=== PATIENT | male | born 1975 | race Caucasian/White ===

== ENCOUNTER 2016-05-19 08:50 | Emergency (ER) | payer OTHER ==
--- NOTE | 2016-05-19 10:02 | ED ---
General Adult HPI - General Chief complaint: Eye Problems Stated complaint: RED AND IRRITATED EYES Time Seen by Provider: 05/19/16 09:19 Source: patient, RN notes reviewed Mode of arrival: ambulatory Limitations: no limitations - History of Present Illness Initial comments: Patient 40-year-old male who presents emergency room today with chief complaint of bilateral eye irritation and drainage over the last week. Does admit that he had cough congestion previous to the last week. States that he went to urgent care was treated for a pinkeye infection started on antibiotic drops of polymyxin. Patient is no improvement still having drainage discharge. States is having droopiness and crusting over the eyelids in the morning that he has to clean off. States the burning sensation to his eyes. Denies any other complaints or associated symptoms at this time. Patient denies any recent fever , chills, shortness of breath, chest pain, back pain, abdominal pain, nausea or vomiting, numbness or tingling, dysuria or hematuria, constipation or diarrhea, headaches or visual changes, or any other complaints. - Related Data Previous Rx's Medication Instructions Recorded Ofloxacin 0.3% Ophth Soln [Ocuflox 1 - 2 drops BOTH EYES QID 7 Days 05/19/16 Ophth Soln] Allergies Allergy/AdvReac Type Severity Reaction Status Date / Time azithromycin Allergy Unknown Verified 05/19/16 08:54 Penicillins Allergy Unknown Verified 05/19/16 08:54 Review of Systems ROS Statement: Those systems with pertinent positive or pertinent negative responses have been documented in the HPI. ROS Other: All systems not noted in ROS Statement are negative. Past Medical History Past Medical History: No Reported History History of Any Multi-Drug Resistant Organisms: None Reported Past Surgical History: No Surgical Hx Reported Past Psychological History: No Psychological Hx Reported Smoking Status: Current some day smoker Past Alcohol Use History: Occasional Past Drug Use History: None Reported General Exam - General Exam Comments Initial Comments: General: The patient is awake and alert, in no distress, and does not appear acutely ill. Eye: Pupils are equal, round and reactive to light, extra-ocular movements are intact. No nystagmus. Redness irritation to the conjunctiva bilaterally. Watery discharge. No signs of icterus. Ears, nose, mouth and throat: There are moist mucous membranes and no oral lesions. Neck: The neck is supple, there is no tenderness or JVD. Cardiovascular: There is a regular rate and rhythm. No murmur, rub or gallop is appreciated. Respiratory: Lungs are clear to auscultation, respirations are non-labored, breath sounds are equal. No wheezes, stridor, rales, or rhonchi. Musculoskeletal: Normal ROM, no tenderness. Strength 5/5. Sensation intact. Pulses equal bilaterally 2+. Neurological: A&O x 3. CN II-XII intact, There are no obvious motor or sensory deficits. Coordination appears grossly intact. Speech is normal. Skin: Skin is warm and dry and no rashes or lesions are noted. Psychiatric: Cooperative, appropriate mood & affect, normal judgment. Limitations: no limitations Course Vital Signs 05/19/16 08:54 Temperature 98.8 F Pulse Rate 83 Respiratory 17 Rate Blood Pressure 143/91 O2 Sat by Pulse 94 L Oximetry Medical Decision Making - Medical Decision Making Patient denies any work-related injuries. Was discussed about possible viral illness. Patient's girlfriend here in the emergency room being seen for same. Patient will have antibiotics switched to Floxin. Advised follow-up with ophthalmology over the next 2 days if symptoms are unimproved. Advised return to emergency room if any symptoms increase worsen. Disposition Clinical Impression: Acute conjunctivitis Disposition: HOME SELF-CARE Condition: Good Instructions: Conjunctivitis (ED) Additional Instructions: Lesions and bilateral eyedrops as prescribed follow-up ophthalmology over the next 2 days if there is no improvement. Please return to emergency room if any symptoms increase or worsen or for any other concerns. Prescriptions: Ofloxacin 0.3% Ophth Soln [Ocuflox Ophth Soln] 1 - 2 drops BOTH EYES QID 7 Days Referrals: None,Stated [Primary Care Provider] - 1-2 days Margarita Garcia MD [STAFF PHYSICIAN] - 1-2 days Time of Disposition: 10:01
[2016-05-19 10:13] VITALS: BP 143/85; PULSE 85; RESP 18; TEMP 98.6
== END 2016-05-19 10:20 | disposition home or self-care (01) ==
LOC: EC 08:50
DX: H10.33 Unspecified acute conjunctivitis, bilateral (principal); F17.200 Nicotine dependence, unspecified, uncomplicated; Z88.0 Allergy status to penicillin; Z88.1 Allergy status to other antibiotic agents
CPT/HCPCS: 99283